=== PATIENT | female | born 2000 | race American Indian/Alaskan Native ===

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

== ENCOUNTER 2020-09-29 18:17 | Outpatient (CLI) | payer MEDICAID, SELFPAY ==
--- NOTE | 2020-09-29 16:00 | DI.RAD_ITS ---
EXAM: XR ANKLE RT COMPLETE CLINICAL HISTORY: right inversion ankle injury S99.919A. TECHNIQUE: 2D digital imaging was performed. COMPARISON: CR XR ANKLE RT COMPLETE from 07/16/2018 FINDINGS: BONES: No acute fracture is present. No bony destructive lesion is seen. JOINTS: The ankle mortise is normally aligned. SOFT TISSUE: Soft tissue swelling about the ankle particularly laterally. IMPRESSION: No acute fracture or dislocation. Soft tissue swelling about the ankle particularly laterally. DATA REPOSITORY: RADIATION DOSE DELIVERED:
--- NOTE | 2020-09-29 16:36 | DI.VRAD_ITS ---
PROCEDURE INFORMATION: Exam: XR Right Ankle Exam date and time: 09/29/2020 4:17 PM Age: 20 years old Clinical indication: Other: Right inversion ankle injury TECHNIQUE: Imaging protocol: XR Right ankle. Views: 3 or more views. COMPARISON: CR XR ANKLE RT COMPLETE 07/16/2018 4:08 PM FINDINGS: Bones/joints: No fracture of distal tibia. No fracture of the talus. Metatarsal bones are unremarkable. No evidence of fracture. No dislocation at the metatarsal/tarsal joints. No fracture or dislocation. Soft tissues: Soft tissue swelling seen adjacent to lateral malleolus. IMPRESSION: 1. Soft tissue swelling seen adjacent to lateral malleolus. 2. No fracture or dislocation. Dictated and Authenticated by: Eliza Adkins MD. Ordering:NICK Gibson MD
== END 2020-09-29 18:37 ==
PROVIDERS: PCP Pediatrics; Visit Provider Pediatrics
DX: S93.491A Sprain of other ligament of right ankle, initial encounter
CPT/HCPCS: 73610

== ENCOUNTER 2021-01-17 18:00 | Emergency (ER) | payer MEDICAID, SELFPAY ==
[2021-01-17 18:08] VITALS: BP 131/86; PULSE 96; RESP 16; TEMP 37.6
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
[2021-01-17] MEDS: Lactated Ringers 1,000 ML 1000 ML IV (19:08)
[2021-01-17] MEDS: Omnipaque 350 MG/ML 100 ML BTL IJ (19:28)
[2021-01-17] MEDS: Normal Saline - Diluent 50 ML VIAL IV (19:29)
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
[2021-01-17 20:59] VITALS: BP 131/86; PULSE 96; RESP 16; TEMP 37.6; O2SAT 96
== END 2021-01-17 21:03 | disposition home or self-care (01) ==
PROVIDERS: Emergency Provider Physician Assistant; PCP Pediatrics
DX: S00.81XA Abrasion of other part of head, initial encounter (principal); S00.83XA Contusion of other part of head, initial encounter; M54.2 Cervicalgia; Y04.8XXA Assault by other bodily force, initial encounter; Y07.59 Other non-family member, perpetrator of maltreatment and neglect
CPT/HCPCS: 70491; 81025; 96360; 99284; 70110; 70450; 70486; 99285; J3490

== ENCOUNTER 2022-01-27 14:16 | Outpatient (REF) | payer MEDICAID, SELFPAY ==
--- NOTE | 2022-01-27 14:15 | PAPFT_PTH ---
PATIENT: Lynsey Mcguire LOC: [facility] U#:[id number] AGE/SX: 21/F ROOM: RE01/27/[address]: Susan Mclain APRN : 2000 BED: DIS: 01/27/2022 SPEC #: [id number] RECD: 01/27/22 18:09 STATUS: BAKARI REQ #: [id number] DEACON: 01/27/22 14:[address]: Susan Mclain DEPT: [facility] Cytology RECD BY: Bridgette Marc Tissues: 1 - CX/ENDOCX FOR PAP SMEARS Procedures: PAP THIN PREP/[facility] Screening Comments: [id number]
[2022-01-30 15:32] LABS: Chlamydia Result Negative (Negative); GC Result Negative (Negative)
== END 2022-01-27 14:17 | disposition home or self-care (01) ==
LOC: LBN 14:16
PROVIDERS: PCP Nurse Practitioner Adult Health; Visit Provider Nurse Practitioner Adult Health
DX: Z12.4 Encounter for screening for malignant neoplasm of cervix (principal); Z11.51 Encounter for screening for human papillomavirus (HPV)
CPT/HCPCS: 87491; 87591; 88142; 87480; 87510; 87660

== ENCOUNTER 2022-04-17 04:27 | Outpatient (CLI) | payer MEDICAID, SELFPAY ==
[2022-04-17] MEDS: Inhaler, Assist Device 1 EACH MC (16:41)
[2022-04-17] MEDS: Albuterol HFA 18 GM 200 PUFF INH IH (16:41)
--- NOTE | 2022-04-19 09:12 | W.PFT ---
Date of service: 04/17/22 Time of Service: 15:39 Pulmonary Function Test Result Requesting Provider Susan Mclain Indications: Dyspnea Interpretation Spirometry: There is no airflow limitation. There is no significant bronchodilator response. There is blunting of the inspiratory loop. Impression No airflow obstruction with inspiratory loop blunting. This could represent vocal cord dysfunction in the correct clinical context. Clinical Correlation therefore is recommended.
== END 2022-04-17 04:28 | disposition home or self-care (01) ==
LOC: RT 04:27
PROVIDERS: PCP Nurse Practitioner Adult Health; Visit Provider Nurse Practitioner Adult Health
DX: R06.09 Other forms of dyspnea (principal); J30.2 Other seasonal allergic rhinitis
CPT/HCPCS: 94060

== ENCOUNTER → 2022-05-09 01:16 | Outpatient (CLI) | payer MEDICAID, SELFPAY ==
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
== END ==
PROVIDERS: PCP Nurse Practitioner Adult Health; Visit Provider Advanced Practice Midwife
DX: O20.9 Hemorrhage in early pregnancy, unspecified (principal)
CPT/HCPCS: 76817

== ENCOUNTER 2022-05-31 02:57 | Outpatient (CLI) | payer MEDICAID, SELFPAY ==
[2022-05-31 16:00] LABS: Kit/Specimen SENT
[2022-05-31 16:10] LABS: Abs Immature Grans 0.06 10^3/uL (0.0-0.06); Absolute Lymphocyte Count 2.29 10^3/uL (1.2-3.4); Absolute Monocyte Count 0.78 10^3/uL (0.1-0.8); Basophils % 0.2; Eosinophils % 0.4; HCT 38.3 % (36.0-46.0); Immature Grans % 0.4; Lymphocytes % 13.8; MCH 22.9 pg (27.0-33.0); MCHC 31.3 % (32.0-36.0); MCV 73 fL (80-95); MPV 10.3 fL (8.0-11.0); Monocytes % 4.7; Neutrophils % 80.5; Platelet Count 348 10^3/uL (130-400); RBC 5.24 10^6/uL (3.93-5.22); RDW 16.5 % (11.7-14.6); RDW-SD 43.1 fL; WBC 16.59 10^3/uL (4.4-10.8)
[2022-05-31 16:17] LABS: Absolute Basophil Count 0.03 10^3/uL (0.0-0.2); Absolute Eosinophil Count 0.07 10^3/uL (0.0-0.7); Absolute Neutrophil Count 13.35 10^3/uL (1.2-6.7)
[2022-06-02 08:58] LABS: Hepatitis B Surface Ag Negative (Negative)
[2022-06-02 09:49] LABS: HIV-1/2 Ag & Ab Screen Negative (Negative)
[2022-06-02 10:06] LABS: Hepatitis C Ab w Rflx HCV PCR Negative (Negative)
[2022-06-02 10:09] LABS: Varicella IgG Antibody Positive (See Note)
[2022-06-02 10:15] LABS: Rubella IgG Ab (UVM) Negative (See Note)
[2022-06-03 16:42] LABS: Syphilis IgG w/Reflex Nonreactive (Nonreactive)
[2022-06-20 13:18] LABS: Result Summary NEGATIVE; Specimen WB Whole Blood
== END 2022-05-31 02:58 | disposition home or self-care (01) ==
LOC: LBO 02:57
PROVIDERS: Advanced Practice Midwife; PCP Nurse Practitioner Adult Health; Visit Provider Advanced Practice Midwife
DX: Z34.82 Encounter for supervision of other normal pregnancy, second trimester (principal); Z3A.00 Weeks of gestation of pregnancy not specified
CPT/HCPCS: 36415; 81220; 81222; 86787; 86803; 86850; 86900; 86901; 87340; 87389; 84443; 85025; 86762; 86780

== ENCOUNTER 2022-05-31 18:18 | Outpatient (REF) | payer MEDICAID, SELFPAY ==
[2022-05-31 18:13] LABS: *AMPHETAMINES SCREEN URINE Negative (Negative); *BARBITURATES SCREEN URINE Negative (Negative); *BENZODIAZEPINES SCREEN URINE Negative (Negative); Cannabinoids THC Positive (Negative); Cocaine Screen,Urine Negative (Negative); METHADONE URINE SCREEN Negative (Negative); OPIATES URINE SCREEN Negative (Negative)
[2022-05-31 18:15] LABS: Tricyclic Antidepressants Negative (Negative)
[2022-06-09 16:09] LABS: Buprenorphine Negative ng/mL (Cutoff: 5.0); Norbuprenorphine Negative ng/mL (Cutoff: 2.5)
== END 2022-05-31 18:19 | disposition home or self-care (01) ==
LOC: LBN 18:18
PROVIDERS: PCP Nurse Practitioner Adult Health; Visit Provider Advanced Practice Midwife
DX: O26.891 Other specified pregnancy related conditions, first trimester (principal); N89.8 Other specified noninflammatory disorders of vagina; Z3A.12 12 weeks gestation of pregnancy
CPT/HCPCS: 80307; 87086; 87480; 87510; 87660

== ENCOUNTER 2022-06-07 03:23 | Outpatient (CLI) | payer MEDICAID, SELFPAY ==
[2022-06-07 14:03] LABS: Glucose,1 Hr (Glucola) 93 mg/dL (80-140)
== END 2022-06-07 03:24 | disposition home or self-care (01) ==
LOC: LBO 03:24
PROVIDERS: PCP Nurse Practitioner Adult Health; Visit Provider Advanced Practice Midwife
DX: Z34.91 Encounter for supervision of normal pregnancy, unspecified, first trimester (principal)
CPT/HCPCS: 36415; 82950

== ENCOUNTER 2022-07-13 15:22 | Outpatient (REF) | payer MEDICAID, SELFPAY | END 2022-07-13 15:23 | disposition home or self-care (01) | LOC: LBN 15:22 | PROVIDERS: PCP Nurse Practitioner Adult Health; Visit Provider Advanced Practice Midwife | DX: N89.8 Other specified noninflammatory disorders of vagina (principal) | CPT/HCPCS: 87480; 87510; 87660 ==

== ENCOUNTER 2022-07-19 03:41 | Outpatient (CLI) | payer MEDICAID, SELFPAY ==
[2022-07-21 09:54] LABS: Cigarette smoking status non-Smoker; GA used in risk estimate Scan estimate; IVF Pregnancy No; Initial or repeat testing Initial testing; Insulin dependent diabetes No; Maternal Weight 209 lbs; Number of Fetuses 1; Physician Phone Number 802-748-7300; Prev Pregnancy w/NTD No; RECOMMENDED FOLLOW UP None.; Results Summary Normal risk
== END 2022-07-19 03:42 | disposition home or self-care (01) ==
LOC: LBO 03:41
PROVIDERS: PCP Nurse Practitioner Adult Health; Visit Provider Advanced Practice Midwife
DX: Z34.92 Encounter for supervision of normal pregnancy, unspecified, second trimester (principal); Z36.89 Encounter for other specified antenatal screening; Z3A.19 19 weeks gestation of pregnancy
CPT/HCPCS: 36415; 82105

== ENCOUNTER → 2022-08-18 00:49 | Outpatient (CLI) | payer MEDICAID, SELFPAY ==
--- NOTE | 2022-08-18 07:57 | DI.US_ITS ---
Exam(s) US OB 2-3 TRIMESTER EXAM: US OB 2-3 TRIMESTER CLINICAL HISTORY: 18 wk anatomy,Z34.90. TECHNIQUE: Transabdominal obstetrical ultrasound was performed. COMPARISON: No exams were available for comparison FINDINGS: There is a single viable intrauterine gestation with cardiac activity identified-114 bpm. Amniotic fluid: There is a normal amount of amniotic fluid. Placental location: The placenta is posterior grade 1,with no evidence of placenta previa. ANATOMY: A 3 vessel umbilical cord is seen. A four-chamber cardiac view was obtained. Right and left ventricular outflow tracts were imaged. There are no obvious abnormalities of the spinal column evident. There is no obvious abnormal ity of the anterior abdominal wall. stomach and urinary bladder are identified and there is no evidence of hydronephrosis. No abnormalities of the upper lip region are identified. No evidence of choroid plexus cysts i n the brain. Dating parameters place this at approximately 24 weeks and 2 days gestational age. BPD measures 24 weeks and 3 days HC measures 24 weeks and 2 days AC measures 24 weeks and 2 days FL measures 24 weeks and 0 days Estimated weight is 672 gm-1 pound 8 ounces Fetus is at the 72nd percentile on the Hadlock scale. IMPRESSION:: Single viable intrauterine gestation which is approximately 24 weeks and 2 days gestati onal age, implying an ESTRELLITA of December 06, 2022. There are no obvious anomalies evident on today's study. The placenta is posterior with no evidence of placenta previa. There is a normal amount of amniotic fluid. DATA REPOSITORY:
== END ==
PROVIDERS: PCP Nurse Practitioner Adult Health; Visit Provider Advanced Practice Midwife
DX: Z34.92 Encounter for supervision of normal pregnancy, unspecified, second trimester (principal); Z3A.24 24 weeks gestation of pregnancy
CPT/HCPCS: 76805

== ENCOUNTER 2022-09-18 03:07 | Outpatient (CLI) | payer MEDICAID, SELFPAY ==
[2022-09-18 14:04] LABS: Glucose,1 Hr (Glucola) 61 mg/dL (80-140)
[2022-09-18 14:10] LABS: *AMPHETAMINES SCREEN URINE Negative (Negative); *BARBITURATES SCREEN URINE Negative (Negative); *BENZODIAZEPINES SCREEN URINE Negative (Negative); Cannabinoids THC Negative (Negative); Cocaine Screen,Urine Negative (Negative); METHADONE URINE SCREEN Negative (Negative); OPIATES URINE SCREEN Negative (Negative); Tricyclic Antidepressants Negative (Negative)
== END 2022-09-18 03:08 | disposition home or self-care (01) ==
LOC: LBO 03:07
PROVIDERS: PCP Nurse Practitioner Adult Health; Visit Provider Advanced Practice Midwife
DX: O99.323 Drug use complicating pregnancy, third trimester (principal); O26.893 Other specified pregnancy related conditions, third trimester; Z67.91 Unspecified blood type, Rh negative
CPT/HCPCS: 36415; 80307; 82950; 86850; 90384

== ENCOUNTER 2022-11-15 02:03 | Outpatient (CLI) | payer MEDICAID, SELFPAY ==
--- NOTE | 2022-11-15 15:25 | DI.US_ITS ---
Exam(s) US OB ANN-MARIE WEIGHT EXAM: US OB ANN-MARIE WEIGHT CLINICAL HISTORY: , size greater than dates,z34.90. TECHNIQUE: Transabdominal obstetrical ultrasound performed. COMPARISON: US US OB 2-3 TRIMESTER from 08/18/2022 FINDINGS:: Number of fetuses: One. position: Vertex. Placental location: Fundal no evidence of previa. BIOMETRIC DATA: BPD: 89mm = 36+ 0 weeks HC: 327mm = 37+ 1 weeks AC: 326mm = 36+ 4 weeks FL: 71 mm = 36+ 2 weeks EFW: 2952 Gms = 39% Composite Age: 36+ 4 weeks EDC: 09 December 2022 Heart Rate: 136BPM Amniotic fluid index: 16.8 cm. Amount of fluid is visually within normal limits. IMPRESSION: size and weight are within the expected range. DATA REPOSITORY:
== END 2022-11-15 02:23 ==
LOC: DI 02:03
PROVIDERS: PCP Nurse Practitioner Adult Health; Visit Provider Advanced Practice Midwife
DX: O36.63X0 Maternal care for excessive fetal growth, third trimester, not applicable or unspecified (principal); Z3A.36 36 weeks gestation of pregnancy
CPT/HCPCS: 76816

== ENCOUNTER 2022-11-15 18:21 | Outpatient (REF) | payer MEDICAID, SELFPAY | END 2022-11-15 18:22 | disposition home or self-care (01) | LOC: LBN 18:21 | PROVIDERS: PCP Nurse Practitioner Adult Health; Visit Provider Advanced Practice Midwife | DX: Z34.93 Encounter for supervision of normal pregnancy, unspecified, third trimester (principal); Z36.85 Encounter for antenatal screening for Streptococcus B; Z3A.36 36 weeks gestation of pregnancy | CPT/HCPCS: 87081 ==

== ENCOUNTER 2022-12-08 14:37 | Outpatient (CLI) | payer MEDICAID, SELFPAY ==
[2022-12-08 15:21] VITALS: BP 125/77; PULSE 81; TEMP 36.8
[2022-12-08 16:18] LABS: ROM Plus Negative
--- NOTE | 2022-12-08 16:23 | PDOC.NST_ITS ---
Date of service: 12/08/22 Time of Service: 16:15 NST Evaluation Reason for NST Reasons for Nonstress Test: OTHER, SEE COMMENT Reason for NST Other: Rule out labor Gestational Age Gestational Age in Weeks and Days: 39 Weeks and 6Days Test and Monitor Explained Test/Monitor Explained: Test Explained, Monitor Explained and Patient Verbalized Understanding Vital Signs Blood Pressure: 125/77 Pulse: 81 Temperature: 98.2 F Urine Results Urine Protein: Negative Urine Ketones: Negative Urine Glucose: Negative Urine Blood: Positive NST Information Date on Monitor: 12/08/22 Time on Monitor: 15:06 Date off Monitor: 12/08/22 Time off Monitor: 15:40 Total Time on Monitor: 34 NST Interventions: PO Hydration Contraction Frequency: Irregular NST Evaluation Patient States Movement: Present FHR Baseline: 135 Variability: Moderate 6-25 bpm Accelerations: 15x15 Decelerations: None NST Results: Reactive Note N/A NST Note Note: NST is reactive and reassuring. Baby is active. Jameson shows some contractions but patient is very comfortable and reports mild back pain and tightening only. ROM plus negative. VE 1/50/-2 posterior and softening. Reviewed signs of labor and when to call. Has appointment in office next week if she has not delivered. JUSTINA NST Reviewed and Verified by: Nydia Dacosta
[2022-12-08 16:25] VITALS: BP 125/77; PULSE 81; TEMP 36.8
== END 2022-12-08 17:30 | disposition home or self-care (01) ==
LOC: BCD 14:37 → OBS 15:20
PROVIDERS: PCP Nurse Practitioner Adult Health; Visit Provider Advanced Practice Midwife
DX: O47.1 False labor at or after 37 completed weeks of gestation (principal); Z3A.37 37 weeks gestation of pregnancy
CPT/HCPCS: 59025; 84112

== ENCOUNTER 2022-12-09 17:23 | Inpatient (IN) | payer MEDICAID, SELFPAY ==
[2022-12-09] VITALS (89 sets, daily range): BP systolic 80–135; BP diastolic 37–81; PULSE 81–128; RESP 20; TEMP 36.6–37.1; O2SAT 94–100; BMI 39.9
[2022-12-09 18:09] LABS: Source Nasal/Nares
[2022-12-09 18:21] LABS: HCT 31.2 % (36.0-46.0); MCH 23.4 pg (27.0-33.0); MCHC 32.1 % (32.0-36.0); MCV 73 fL (80-95); MPV 10.6 fL (8.0-11.0); Platelet Count 316 10^3/uL (130-400); RBC 4.27 10^6/uL (3.93-5.22); RDW 17.2 % (11.7-14.6); RDW-SD 44.7 fL; WBC 21.15 10^3/uL (4.4-10.8)
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
[2022-12-09 18:57] LABS: COVID-19 PCR Negative (Negative)
--- NOTE | 2022-12-09 19:42 | W.PM.OBNL1 ---
Date of service: 12/09/22 Time of Service: 19:42 Informed Consent Informed Consent: Risk,Benefits,Alternatives Discussed and Other (nitrous use) Contractions Monitor Mode: External Contraction Frequency(min): 4-7 Contraction Duration(sec): 60 Intensity: Moderate Fetus A Monitor: External (US) Heart Rate Baseline: 130 Variability: Moderate (6-25 BPM) Categories: Category I Amniotic Membrane Status: Intact Assessment and Plan Assessment and plan (1) Uterine contractions: Status: Acute Assessment and plan: 1. Awaiting epidural placement, trying nitrous for pain relief. emesis times 1. 2. Labor support offered 3. Will reassess VE after epidural unless otherwise indicated by maternal / status. 4. No prolonged deceleration in over 1 hour at this time. KH Objective Abnormal lab results 12/09/22 Range/Units 18:00 WBC 21.15 H (4.4-10.8) 10^3/uL Hgb 10.0 L (11.2-15.7) g/dL Hct 31.2 L (36.0-46.0) % MCV 73 L (80-95) fL MCH 23.4 L (27.0-33.0) pg RDW 17.2 H (11.7-14.6) % Temp Pulse Resp BP Pulse Ox 98.5 F 100 H 20 108/56 L 96 12/09/22 19:05 12/09/22 19:05 12/09/22 15:55 12/09/22 19:05 12/09/22 15:55 Laboratory Results WBC 21.15 10^3/uL (4.4-10.8) H 12/09/22 18:00 RBC 4.27 10^6/uL (3.93-5.22) 12/09/22 18:00 Hgb 10.0 g/dL (11.2-15.7) L 12/09/22 18:00 Hct 31.2 % (36.0-46.0) L 12/09/22 18:00 MCV 73 fL (80-95) L 12/09/22 18:00 MCH 23.4 pg (27.0-33.0) L 12/09/22 18:00 MCHC 32.1 % (32.0-36.0) 12/09/22 18:00 RDW 17.2 % (11.7-14.6) H 12/09/22 18:00 Plt Count 316 10^3/uL (130-400) 12/09/22 18:00 MPV 10.6 fL (8.0-11.0) 12/09/22 18:00 COVID-19 Source Nasal/Nares 12/09/22 17:04 SARS-CoV-2 (PCR) Negative (Negative) 12/09/22 17:04 Patient ABO/Rh O Negative 12/09/22 18:00 Antibody Screen NEGATIVE 12/09/22 18:00 Subjective Interval history since last seen: Much more uncomfortable with contractions. Awaiting CORDWOOD CUTTER who is in OR at this time. Will try Nitrous. Results Hemoglobin/Hematocrit: Hgb 10.0 g/dL (11.2-15.7) L 12/09/22 18:00 Hct 31.2 % (36.0-46.0) L 12/09/22 18:00 Abnormal Lab Findings: Abnormal Labs 12/09/22 18:00 WBC 21.15 H Hgb 10.0 L Hct 31.2 L MCV 73 L MCH 23.4 L RDW 17.2 H
[2022-12-09] MEDS: Lactated Ringers 500 ML IV (19:58)
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
--- NOTE | 2022-12-09 20:53 | ANES.NEUR_ITS ---
Epidural/Spinal Catheter Date Performed: 12/09/22 Procedure Start: 20:30 Procedure Stop: 20:56 Requesting Provider: Nydia Dacosta Procedure Location: Obstetrics Reason Performed: Labor Epidural Standard Monitors Applied: Blood Pressure, SpO2 and See EMR for corresponding vital signs Patient Position: Sitting Sedation Given (Indicate Dose Given): No Sedation given Patient Mental Status: Awake Sterility: Hand Hygiene, Surgical Cap, Surgical Mask, Sterile Gloves, Sterile Drape/Sheet and Chlorhexidine Procedure Location: L3-L4 Interspace Epidural Needle: Tuohy 18 Gauge Needle Length: 3.5 Inch Needle Approach: Midline Epidural Procedure: Skin Prepped, 1% Lidocaine to skin and subcutaneous tissue with 25G needle, Tuohy Needle placed, ELGIN to Saline Used, Epidural Catheter Placed, Negative Heme, Negative CSF Flow and Tuohy Needle Removed Catheter Placed?: Catheter Placed Test Dose (Indicate Dose Given): 3ml 1.5% Lidocaine with 1:200K Epinephrine Given and Negative Test Dose Loss of Resistance Depth (cm): 7 Catheter depth at skin (cm): 13 Dressing: Sorbaview Dressing Placed, Steristrips Used, Mastisol Used and Dressing reinforced with Tape Epidural Provider Bolus (Indicate Dose Given): Total bolus dose given in 3- 5 ml divided doses and Total Ropivacaine 0.1% with Fentanyl 2mcg/ml Given from pump. (ml) Dose:: 10ml Additives (Indicate Dose Given ): None Infusion Medication: Medication Infusion Began Medication Infusion: Ropivacaine 0.1% with Fentanyl 2mcg/ml Maintenance Infusion Rate (ml/hour): 10 PCEA Bolus Dose (ml): 5 Block Level: N/A Paresthesia: None Ultrasound: Used to sebastián site Number of Attempts (See previous attempts in note section): 1 Procedure Tolerated: No Complications and Patient tolerated well Procedure Outcome: Successful Procedure Comment:: test dose at 2042. pt educated on PCEA use. answered questions. she states she is comfortable after pump bolus. Performed By: Jack Mora
--- NOTE | 2022-12-09 23:11 | PGE_ITS ---
Date of service: 12/09/22 Time of Service: 23:11 Informed Consent Informed Consent: Augmentation of Labor, Risk,Benefits,Alternatives Discussed and Other (nitrous use) Pelvic Exam Dilation: 7 Effacement (%): 100 station: -1 Cervix Position: mid Contractions Monitor Mode: External Contraction Frequency(min): 4-6 Contraction Duration(sec): 40-60 Intensity: Moderate Fetus A Monitor: External (US) Heart Rate Baseline: 125 Variability: Moderate (6-25 BPM) Categories: Category II Accelerations: 15 X 15 Decelerations: Variable (irregular variable decelerations to 100 for 15 seconds) Recurrence: Intermittent Assessment and Plan Assessment and plan (1) Slow slope active phase of labor: Status: Acute Assessment and plan: 1. Supervisor Billposting reviewed plan with Dr. Flores that pitocin augmentation would be started 2 hours after epidural if no cervical changes were noted. MD agreed to plan. 2. FHR tracing CAT II due to occasional 15 second variable decel to 100, overall reassuring tracing. 3. Reviewed plan with patient, agrees to pitocin augmentation. Will start at 2 mu and increase by 2 mu every 30 minutes until regular strong contractions are noted. 4. Will reassess in 2 hours or prn. KH Objective Abnormal lab results 12/09/22 Range/Units 18:00 WBC 21.15 H (4.4-10.8) 10^3/uL Hgb 10.0 L (11.2-15.7) g/dL Hct 31.2 L (36.0-46.0) % MCV 73 L (80-95) fL MCH 23.4 L (27.0-33.0) pg RDW 17.2 H (11.7-14.6) % Temp Pulse Resp BP Pulse Ox 98.3 F 112 H 20 93/54 L 99 12/09/22 20:51 12/09/22 23:10 12/09/22 15:55 12/09/22 23:10 12/09/22 22:53 Laboratory Results WBC 21.15 10^3/uL (4.4-10.8) H 12/09/22 18:00 RBC 4.27 10^6/uL (3.93-5.22) 12/09/22 18:00 Hgb 10.0 g/dL (11.2-15.7) L 12/09/22 18:00 Hct 31.2 % (36.0-46.0) L 12/09/22 18:00 MCV 73 fL (80-95) L 12/09/22 18:00 MCH 23.4 pg (27.0-33.0) L 12/09/22 18:00 MCHC 32.1 % (32.0-36.0) 12/09/22 18:00 RDW 17.2 % (11.7-14.6) H 12/09/22 18:00 Plt Count 316 10^3/uL (130-400) 12/09/22 18:00 MPV 10.6 fL (8.0-11.0) 12/09/22 18:00 COVID-19 Source Nasal/Nares 12/09/22 17:04 SARS-CoV-2 (PCR) Negative (Negative) 12/09/22 17:04 Patient ABO/Rh O Negative 12/09/22 18:00 Antibody Screen NEGATIVE 12/09/22 18:00 Vital Signs Reviewed: Yes Subjective Interval history since last seen: Lynsey remains very comfortable. Agrees to pitocin augmentation of labor as this VE shows no change from just after epidural Interventions Augmentation , Pitocin rate (mU/min): 2 Results Hemoglobin/Hematocrit: Hgb 10.0 g/dL (11.2-15.7) L 12/09/22 18:00 Hct 31.2 % (36.0-46.0) L 12/09/22 18:00 Abnormal Lab Findings: Abnormal Labs 12/09/22 18:00 WBC 21.15 H Hgb 10.0 L Hct 31.2 L MCV 73 L MCH 23.4 L RDW 17.2 H
[2022-12-09] MEDS: Oxytocin/Normal Saline 30 UNIT/500 ML BAG 2 UNITS IV (23:28)
[2022-12-10] VITALS (14 sets, daily range): BP systolic 98–122; BP diastolic 56–75; PULSE 98–121; RESP 18; TEMP 36.5–37.5; O2SAT 95–97
--- NOTE | 2022-12-10 01:00 | W.PM.OBNL1 ---
Date of service: 12/10/22 Time of Service: 01:00 Informed Consent Informed Consent: Augmentation of Labor, Risk,Benefits,Alternatives Discussed and Other (nitrous use) Pelvic Exam Dilation: 9 Effacement (%): 100 station: -1 Comments: AROM at 0047 small amount of clear fluid Contractions Monitor Mode: Internal Contraction Frequency(min): 4-5 Contraction Duration(sec): 60 IUPC resting tone (mmHg): 20 IUPC peak pressure (mmHg): 75 IUPC [place] units: 160 Fetus A Monitor: Internal (FSE) Heart Rate Baseline: 135 Variability: Moderate (6-25 BPM) Categories: Category I Accelerations: 10 X 10 Decelerations: None Amniotic Membrane Status: Ruptured Rupture Method: Artifical Amniotic Fluid: Clear Amount: small Date of Membrane Rupture: 12/10/22 Time of Membrane Rupture: 00:47 Assessment Note: currently no decelerations since 55, when FSE was first applied FHR was 110 for 4 minutes Assessment and Plan Assessment and plan (1) Slow slope active phase of labor: Status: Acute Assessment and plan: 1. due to repeat prolonged variable deceleration pitocin was discontinued 2. Telephone consult with Dr. Flores to inform her of maternal / status and decelerations 3. AROM for small amount of clear fluid and IUPC and FSE is applied. 4. MD would like to allow for continued progress if there are not severe or repetitive decelerations of FHR. 5. Will observe for change in 2 hours unless otherwise indicated by maternal / status. KH Objective Abnormal lab results 12/09/22 Range/Units 18:00 WBC 21.15 H (4.4-10.8) 10^3/uL Hgb 10.0 L (11.2-15.7) g/dL Hct 31.2 L (36.0-46.0) % MCV 73 L (80-95) fL MCH 23.4 L (27.0-33.0) pg RDW 17.2 H (11.7-14.6) % Temp Pulse Resp BP Pulse Ox 98.8 F 111 H 20 100/57 L 99 12/09/22 23:40 12/09/22 23:40 12/09/22 15:55 12/09/22 23:40 12/09/22 22:53 Laboratory Results WBC 21.15 10^3/uL (4.4-10.8) H 12/09/22 18:00 RBC 4.27 10^6/uL (3.93-5.22) 12/09/22 18:00 Hgb 10.0 g/dL (11.2-15.7) L 12/09/22 18:00 Hct 31.2 % (36.0-46.0) L 12/09/22 18:00 MCV 73 fL (80-95) L 12/09/22 18:00 MCH 23.4 pg (27.0-33.0) L 12/09/22 18:00 MCHC 32.1 % (32.0-36.0) 12/09/22 18:00 RDW 17.2 % (11.7-14.6) H 12/09/22 18:00 Plt Count 316 10^3/uL (130-400) 12/09/22 18:00 MPV 10.6 fL (8.0-11.0) 12/09/22 18:00 COVID-19 Source Nasal/Nares 12/09/22 17:04 SARS-CoV-2 (PCR) Negative (Negative) 12/09/22 17:04 Patient ABO/Rh O Negative 12/09/22 18:00 Antibody Screen NEGATIVE 12/09/22 18:00 Subjective Interval history since last seen: CNM called to view tracing at 0020 due to prolonged decel to 90 over 4 minutes. While viewing tracing, there was another 40 second variable deceleration. Registry Rn called Dr. Flores to inform her of FHR decelerations and that pitocin was discontinued. VE 9cm 100/-1. requests CNM to perform AROM and continue to observe for changes as long as FHR is back to normal baseline with good variability which it was at that time. KH Results Hemoglobin/Hematocrit: Hgb 10.0 g/dL (11.2-15.7) L 12/09/22 18:00 Hct 31.2 % (36.0-46.0) L 12/09/22 18:00 Abnormal Lab Findings: Abnormal Labs 12/09/22 18:00 WBC 21.15 H Hgb 10.0 L Hct 31.2 L MCV 73 L MCH 23.4 L RDW 17.2 H Procedure Procedures: Scalp Electrode Placement , indication for electrode: occasional prolonged deceleration of FHR noted / IUPC Insertion , indication for IUPC: unable to assess contractions with external toco and patient does not feel them due to epidural, occasional prolonged or variable deceleration noted.
--- NOTE | 2022-12-10 02:24 | W.PM.OBNL1 ---
Date of service: 12/10/22 Time of Service: 02:24 Informed Consent Informed Consent: Augmentation of Labor, Risk,Benefits,Alternatives Discussed and Other (nitrous use) Pelvic Exam Dilation: 9.5 Effacement (%): 100 station: -1 Contractions Monitor Mode: Internal Contraction Frequency(min): 4-5 Contraction Duration(sec): 60 IUPC [place] units: 95 Fetus A Monitor: Internal (FSE) Heart Rate Baseline: 125 Variability: Moderate (6-25 BPM) Categories: Category II Decelerations: Variable Recurrence: Recurrent Assessment and Plan Assessment and plan (1) Slow slope active phase of labor: Status: Acute Assessment and plan: 1. MD called to attend patient due to repetitive variable decelerations with 3 contractions in a row. 2. Patient repositioned. has had sever IV boluses to date, will defer bolus 3. Patient aware that due to baby having some difficulty with tolerating contractions that Dr. Flores will attend to determine plan of care to continue with MD collaboration and presence in hospital or if may be recommended. KH Objective Abnormal lab results 12/09/22 Range/Units 18:00 WBC 21.15 H (4.4-10.8) 10^3/uL Hgb 10.0 L (11.2-15.7) g/dL Hct 31.2 L (36.0-46.0) % MCV 73 L (80-95) fL MCH 23.4 L (27.0-33.0) pg RDW 17.2 H (11.7-14.6) % Temp Pulse Resp BP Pulse Ox 98.5 F 98 H 20 120/75 99 12/10/22 01:59 12/10/22 01:59 12/09/22 15:55 12/10/22 01:59 12/09/22 22:53 Laboratory Results WBC 21.15 10^3/uL (4.4-10.8) H 12/09/22 18:00 RBC 4.27 10^6/uL (3.93-5.22) 12/09/22 18:00 Hgb 10.0 g/dL (11.2-15.7) L 12/09/22 18:00 Hct 31.2 % (36.0-46.0) L 12/09/22 18:00 MCV 73 fL (80-95) L 12/09/22 18:00 MCH 23.4 pg (27.0-33.0) L 12/09/22 18:00 MCHC 32.1 % (32.0-36.0) 12/09/22 18:00 RDW 17.2 % (11.7-14.6) H 12/09/22 18:00 Plt Count 316 10^3/uL (130-400) 12/09/22 18:00 MPV 10.6 fL (8.0-11.0) 12/09/22 18:00 COVID-19 Source Nasal/Nares 12/09/22 17:04 SARS-CoV-2 (PCR) Negative (Negative) 12/09/22 17:04 Patient ABO/Rh O Negative 12/09/22 18:00 Antibody Screen NEGATIVE 12/09/22 18:00 Subjective Interval history since last seen: Lynsey is doing well. Has some rectal pressure but no involuntary urge to push. VE due to variable decelerations to 80's done, no change 9.5/100/-1. Dr. Flores called and check writer salesperson asked MD to attend. KH Results Hemoglobin/Hematocrit: Hgb 10.0 g/dL (11.2-15.7) L 12/09/22 18:00 Hct 31.2 % (36.0-46.0) L 12/09/22 18:00 Abnormal Lab Findings: Abnormal Labs 12/09/22 18:00 WBC 21.15 H Hgb 10.0 L Hct 31.2 L MCV 73 L MCH 23.4 L RDW 17.2 H
--- NOTE | 2022-12-10 03:40 | W.PM.OBNL1 ---
Date of service: 12/10/22 Time of Service: 03:40 Informed Consent Informed Consent: Augmentation of Labor, Risk,Benefits,Alternatives Discussed and Other (nitrous use) Pelvic Exam Dilation: 10 Effacement (%): 100 station: -1 Contractions Monitor Mode: Internal Contraction Frequency(min): 2-4 IUPC resting tone (mmHg): 20 IUPC peak pressure (mmHg): 75 Fetus A Monitor: Internal (FSE) Heart Rate Baseline: 130 Variability: Moderate (6-25 BPM) Categories: Category II CategoryII Plan of Care: Team Huddle, Medical Consult (will allow period of time without pushing) and Continuous Monitoring/Observation Decelerations: Variable and Prolonged Assessment and Plan Assessment and plan (1) Slow slope active phase of labor: Status: Acute Assessment and plan: 1. Will rest from pushing for a period of time and allow for passive descent if FHR tolerates 2. IV Zofran and Protonix for nausea and vomiting 3. Dr. Flores is present and aware of CAT II tracing 4. Reassess in 1 hour or as indicated Objective Abnormal lab results 12/09/22 Range/Units 18:00 WBC 21.15 H (4.4-10.8) 10^3/uL Hgb 10.0 L (11.2-15.7) g/dL Hct 31.2 L (36.0-46.0) % MCV 73 L (80-95) fL MCH 23.4 L (27.0-33.0) pg RDW 17.2 H (11.7-14.6) % Temp Pulse Resp BP Pulse Ox 98.7 F 107 H 20 119/62 99 12/10/22 02:37 12/10/22 02:37 12/09/22 15:55 12/10/22 02:37 12/09/22 22:53 Laboratory Results WBC 21.15 10^3/uL (4.4-10.8) H 12/09/22 18:00 RBC 4.27 10^6/uL (3.93-5.22) 12/09/22 18:00 Hgb 10.0 g/dL (11.2-15.7) L 12/09/22 18:00 Hct 31.2 % (36.0-46.0) L 12/09/22 18:00 MCV 73 fL (80-95) L 12/09/22 18:00 MCH 23.4 pg (27.0-33.0) L 12/09/22 18:00 MCHC 32.1 % (32.0-36.0) 12/09/22 18:00 RDW 17.2 % (11.7-14.6) H 12/09/22 18:00 Plt Count 316 10^3/uL (130-400) 12/09/22 18:00 MPV 10.6 fL (8.0-11.0) 12/09/22 18:00 COVID-19 Source Nasal/Nares 12/09/22 17:04 SARS-CoV-2 (PCR) Negative (Negative) 12/09/22 17:04 Patient ABO/Rh O Negative 12/09/22 18:00 Antibody Screen NEGATIVE 12/09/22 18:00 Subjective Interval history since last seen: Lynsey had felt pressure and urge to push, trial of pushing done but patient has poor effort and no progress after 20 minutes of pushing. She is having nausea and dry heaves and requests period of rest. Dr. Flores is present and is aware of patient's condition and FHR tracing. Results Hemoglobin/Hematocrit: Hgb 10.0 g/dL (11.2-15.7) L 12/09/22 18:00 Hct 31.2 % (36.0-46.0) L 12/09/22 18:00 Abnormal Lab Findings: Abnormal Labs 12/09/22 18:00 WBC 21.15 H Hgb 10.0 L Hct 31.2 L MCV 73 L MCH 23.4 L RDW 17.2 H
[2022-12-10] MEDS: Ondansetron 4 MG/2 ML VIAL IVP (03:43)
[2022-12-10] MEDS: Pantoprazole 40 MG VIAL IVP (03:52)
[2022-12-10] MEDS: Lactated Ringers 1,000 ML 125 ML IV (04:52)
--- NOTE | 2022-12-10 05:53 | W.PM.OBNL1 ---
Date of service: 12/10/22 Time of Service: 05:15 Informed Consent Informed Consent: Augmentation of Labor, Risk,Benefits,Alternatives Discussed and Other (nitrous use) Fetus A Assessment Note: FHR deceleration to 70's with contractions, taking longer to return to baseline. aware and will attend. Video Production Intern verbalized that she will defer decision related to possible vacuum to her. KH Objective Abnormal lab results 12/09/22 Range/Units 18:00 WBC 21.15 H (4.4-10.8) 10^3/uL Hgb 10.0 L (11.2-15.7) g/dL Hct 31.2 L (36.0-46.0) % MCV 73 L (80-95) fL MCH 23.4 L (27.0-33.0) pg RDW 17.2 H (11.7-14.6) % Temp Pulse Resp BP Pulse Ox 99.5 F 112 H 20 115/58 L 99 12/10/22 05:08 12/10/22 05:08 12/09/22 15:55 12/10/22 05:08 12/09/22 22:53 Laboratory Results WBC 21.15 10^3/uL (4.4-10.8) H 12/09/22 18:00 RBC 4.27 10^6/uL (3.93-5.22) 12/09/22 18:00 Hgb 10.0 g/dL (11.2-15.7) L 12/09/22 18:00 Hct 31.2 % (36.0-46.0) L 12/09/22 18:00 MCV 73 fL (80-95) L 12/09/22 18:00 MCH 23.4 pg (27.0-33.0) L 12/09/22 18:00 MCHC 32.1 % (32.0-36.0) 12/09/22 18:00 RDW 17.2 % (11.7-14.6) H 12/09/22 18:00 Plt Count 316 10^3/uL (130-400) 12/09/22 18:00 MPV 10.6 fL (8.0-11.0) 12/09/22 18:00 COVID-19 Source Nasal/Nares 12/09/22 17:04 SARS-CoV-2 (PCR) Negative (Negative) 12/09/22 17:04 Patient ABO/Rh O Negative 12/09/22 18:00 Antibody Screen NEGATIVE 12/09/22 18:00 Results Hemoglobin/Hematocrit: Hgb 10.0 g/dL (11.2-15.7) L 12/09/22 18:00 Hct 31.2 % (36.0-46.0) L 12/09/22 18:00 Abnormal Lab Findings: Abnormal Labs 12/09/22 18:00 WBC 21.15 H Hgb 10.0 L Hct 31.2 L MCV 73 L MCH 23.4 L RDW 17.2 H
--- NOTE | 2022-12-10 05:55 | W.PM.OBNL1 ---
Date of service: 12/10/22 Time of Service: 05:40 Informed Consent Informed Consent: Augmentation of Labor, Risk,Benefits,Alternatives Discussed and Other (nitrous use) Objective Abnormal lab results 12/09/22 Range/Units 18:00 WBC 21.15 H (4.4-10.8) 10^3/uL Hgb 10.0 L (11.2-15.7) g/dL Hct 31.2 L (36.0-46.0) % MCV 73 L (80-95) fL MCH 23.4 L (27.0-33.0) pg RDW 17.2 H (11.7-14.6) % Temp Pulse Resp BP Pulse Ox 99.5 F 112 H 20 115/58 L 99 12/10/22 05:08 12/10/22 05:08 12/09/22 15:55 12/10/22 05:08 12/09/22 22:53 Laboratory Results WBC 21.15 10^3/uL (4.4-10.8) H 12/09/22 18:00 RBC 4.27 10^6/uL (3.93-5.22) 12/09/22 18:00 Hgb 10.0 g/dL (11.2-15.7) L 12/09/22 18:00 Hct 31.2 % (36.0-46.0) L 12/09/22 18:00 MCV 73 fL (80-95) L 12/09/22 18:00 MCH 23.4 pg (27.0-33.0) L 12/09/22 18:00 MCHC 32.1 % (32.0-36.0) 12/09/22 18:00 RDW 17.2 % (11.7-14.6) H 12/09/22 18:00 Plt Count 316 10^3/uL (130-400) 12/09/22 18:00 MPV 10.6 fL (8.0-11.0) 12/09/22 18:00 COVID-19 Source Nasal/Nares 12/09/22 17:04 SARS-CoV-2 (PCR) Negative (Negative) 12/09/22 17:04 Patient ABO/Rh O Negative 12/09/22 18:00 Antibody Screen NEGATIVE 12/09/22 18:00 Subjective Interval history since last seen: Dr. Flores assessing patient. despite multiple position changes FHR continues to be slow to recover. MD considering C/S. See MD notes. Will plan to call team and pediatrics once decision is made to move forward.KH Results Hemoglobin/Hematocrit: Hgb 10.0 g/dL (11.2-15.7) L 12/09/22 18:00 Hct 31.2 % (36.0-46.0) L 12/09/22 18:00 Abnormal Lab Findings: Abnormal Labs 12/09/22 18:00 WBC 21.15 H Hgb 10.0 L Hct 31.2 L MCV 73 L MCH 23.4 L RDW 17.2 H
[2022-12-10] MEDS: Terbutaline 1 MG/ML VIAL 0.25 MG SC (05:59)
[2022-12-10] MEDS: Azithromycin 500 MG VIAL (06:06)
--- NOTE | 2022-12-10 06:29 | W.PM.OBNL1 ---
Date of service: 12/10/22 Time of Service: 06:29 Informed Consent Informed Consent: Augmentation of Labor, Risk,Benefits,Alternatives Discussed and Other (nitrous use) Pelvic Exam Dilation: 10 Effacement (%): 100 station: +1 Position: OP Fetus A Heart Rate Baseline: 155 Presentation: Vertex Variability: Moderate (6-25 BPM) Categories: Category II Accelerations: 15 X 15 Decelerations: Variable Recurrence: Recurrent Assessment and Plan Assessment and plan (1) Uterine contractions: Status: Acute Assessment and plan: Due to the minimal descent of the head and the concerning Cat 2 tracing which worsened with contractions and pushing, a delivery was recommended. The procedure was discussed and explained to the patient. Risks were reviewed and consent signed. All questions answered. Objective Abnormal lab results 12/09/22 Range/Units 18:00 WBC 21.15 H (4.4-10.8) 10^3/uL Hgb 10.0 L (11.2-15.7) g/dL Hct 31.2 L (36.0-46.0) % MCV 73 L (80-95) fL MCH 23.4 L (27.0-33.0) pg RDW 17.2 H (11.7-14.6) % Temp Pulse Resp BP Pulse Ox 99.2 F 121 H 20 122/66 99 12/10/22 06:19 12/10/22 06:19 12/09/22 15:55 12/10/22 06:19 12/09/22 22:53 Laboratory Results WBC 21.15 10^3/uL (4.4-10.8) H 12/09/22 18:00 RBC 4.27 10^6/uL (3.93-5.22) 12/09/22 18:00 Hgb 10.0 g/dL (11.2-15.7) L 12/09/22 18:00 Hct 31.2 % (36.0-46.0) L 12/09/22 18:00 MCV 73 fL (80-95) L 12/09/22 18:00 MCH 23.4 pg (27.0-33.0) L 12/09/22 18:00 MCHC 32.1 % (32.0-36.0) 12/09/22 18:00 RDW 17.2 % (11.7-14.6) H 12/09/22 18:00 Plt Count 316 10^3/uL (130-400) 12/09/22 18:00 MPV 10.6 fL (8.0-11.0) 12/09/22 18:00 COVID-19 Source Nasal/Nares 12/09/22 17:04 SARS-CoV-2 (PCR) Negative (Negative) 12/09/22 17:04 Patient ABO/Rh O Negative 12/09/22 18:00 Antibody Screen NEGATIVE 12/09/22 18:00 Objective Narrative Objective Narrative: Pt pushed for just over 2hrs with minimal descent of the head to +1 station. The head was direct OP with increasing caput developing. Category 2 FHT with recurrent variable decels with most contractions, some becoming prolonged and slow to recover. Subjective Interval history since last seen: Pt getting tired and discouraged. Results Hemoglobin/Hematocrit: Hgb 10.0 g/dL (11.2-15.7) L 12/09/22 18:00 Hct 31.2 % (36.0-46.0) L 12/09/22 18:00 Abnormal Lab Findings: Abnormal Labs 12/09/22 18:00 WBC 21.15 H Hgb 10.0 L Hct 31.2 L MCV 73 L MCH 23.4 L RDW 17.2 H
[2022-12-10] MEDS: ceFAZolin 2 GM/50 ML BAG IVPB (07:06)
--- NOTE | 2022-12-10 07:30 | PERITONEUM_PTH ---
PATIENT: Lynsey Mcguire LOC: OBS U#:[id number] AGE/SX: 22/F ROOM: OBS.301 RE12/09/[address]: Coleen Flores MD : 2000 BED: A DIS: 12/13/2022 SPEC #: [id number] RECD: 12/11/22 12:39 STATUS: BAKARI REQ #: [id number] DEACON: 12/10/22 07:[address]: Coleen Flores DEPT: Surgical Specimen RECD BY: Bridgette Marc ENTERED: 12/11/22 12:40 SP TYPE: PERITONEUM OTHR DR: Susan Mclain APRN Tissues: 1 - PERITONEUM/ELLA BIOPSY Procedures: GROSS AND MICRO LEVEL 4 Comments: [id number]
[2022-12-10] MEDS: Bupivacaine 0.25% Pres-Free 30 ML VIAL (07:51)
--- NOTE | 2022-12-10 08:07 | W.PM.OP ---
Date of service: 12/10/22 Time of Service: 08:08 Operative Note Operative Note DATE OF PROCEDURE: 12/10/22 PRE-OP DIAGNOSIS: Cat 2 FHT, Arrest of descent PROCEDURE: PLTCS SURGEON: Coleen Flores ASSISTING SURGEON: Nydia Dacosta Refer to Anesthesia Record ESTIMATED BLOOD LOSS: 500 COMPLICATIONS: None Patient was transported to: floor Patient's condition: stable Indications: Cat 2FHT with minimal descent of the head, direct OP presentation Findings: Direct OP presentation, thick meconium. Male , apgars 7/9. Normal appearing uterus, ovaries, tubes and placenta. Multiple simple cystic structures attached to the pt's right abdominal side wall above the level of the infundibulopelvic ligament. Procedure Description: After informed consent was signed the patient was taken to the operating room. She was given spinal anesthesia, SCDs were placed on her legs. A leyva catheter was already in place. The heart rate was checked and was normal. She underwent abdominal and vaginal prep and was draped in the dorsal supine position with a leftward tilt. The patient was tested and spinal anesthesia was found to be adequate. A time out was performed. A skin incision was made with the scalpel and carried down to the underlying layer of fascia with blunt dissection. The fascia was incised on either side of the midline and the fascial incision extended laterally with a combination of sharp and blunt dissection. The inferior edge of the fascia was grasped with shari clamps and tented up and dissected down with a combination of sharp and blunt dissection. Then the superior edge of the fascial incision was grasped with shari clamps and tented up and dissected down with a combination of sharp and blunt dissection. The rectus muscles were in the midline and the peritoneum was entered bluntly. The peritoneal incision was extended laterally with blunt dissection. Multiple simple cysts were noted with long pedacles extending into the pt's right abdomen. The bladder blade was inserted. A transverse incision was made in the lower uterine segment with the scalpel. The incision was extended superiorly and inferiorly with blunt pressure. The infants head delivered with fundal pressure followed by the shoulders and the rest of the body. The cord was milked toward the baby and after 1min it was clamped x2 and cut. The baby was handed to the chief fundraising officer. Cord blood was collected. The placenta delivered with fundal massage and gentle cord traction and appeared to be intact. The uterus was exteriorized and cleared of clots and debris. The uterine incision was closed with 0-vicryl in a running locked fashion with a second layer of suture imbricating the first. Good hemostasis was noted. The cysts were traced back to an attachment to the right abdominal side wall just above the infundibulopelvic ligament. There was another intact cyst noted directly attached to the sidewall. The thin pedacles were ligated with the ligasure and the cysts were sent for pathology evaluation. The uterus was placed back into the abdominal cavity. Clots were cleared from the peritoneal cavity with lap sponges. The incision was inspected once again and good hemostasis was noted. There was good hemostasis of the rectus muscles. The fascia was closed with 0-vicryl in a running unlocked fashion. The subcuticular layer was irrigated and closed with interrupted sutures of 3-0 vicryl. The skin was closed with 4-0 monocryl in a running subcuticular fashion. The incision was cleaned. Mastisol and steristrips were placed. A dressing was placed. The fundus was palpated to be firm. The patient was moved to the stretcher and taken to the recovery room in stable condition.
--- NOTE | 2022-12-10 11:39 | W.ANESPOSTOP ---
Postoperative Evaluation Date, Time and Location Date Performed: 12/10/22 Time Performed: 11:39 Patient Location: Obstetrics Vital Signs Most Recent Imported Vital Signs: Most Recent Vital Signs Temp Pulse Resp BP Pulse Ox 36.6 C 112 H 18 98/58 L 97 12/10/22 08:00 12/10/22 09:30 12/10/22 09:00 12/10/22 09:30 12/10/22 09:30 Assessment Mental Status: Awake (Alert & Oriented to Patient Baseline) Airway and Respiratory Function: Patent airway with normal (patient baseline) respiratory exam Cardiovascular Function: Hemodynamically Stable Hydration Status: Adequately Hydrated Nausea & Vomiting: No Nausea or Vomiting Pain: Pain is tolerable per patient Peripheral Nerve Block: Patient did not receive a nerve block Postoperative Comments:: Spinal this wearing off. Nursing will continue to monitor this.
[2022-12-10] MEDS: Normal Saline Flush 10 ML SYR IVP ×2 (12:24→18:27)
[2022-12-10] MEDS: Ketorolac 30 MG/ML VIAL IVP ×2 (12:24→18:26)
[2022-12-10] MEDS: Sertraline 25 MG TAB PO (12:25)
[2022-12-11] VITALS (8 sets, daily range): BP systolic 103–128; BP diastolic 56–85; PULSE 81–101; RESP 17–18; TEMP 36.5–37; O2SAT 99
[2022-12-11] MEDS: Ketorolac 30 MG/ML VIAL IVP ×2 (00:15→06:03)
[2022-12-11] MEDS: Normal Saline Flush 10 ML SYR IVP ×2 (00:15→06:04)
[2022-12-11 06:58] LABS: Abs Immature Grans 0.12 10^3/uL (0.0-0.06); Absolute Eosinophil Count 0.04 10^3/uL (0.0-0.7); Absolute Lymphocyte Count 2.58 10^3/uL (1.2-3.4); Absolute Monocyte Count 1.21 10^3/uL (0.1-0.8); Basophils % 0.1; Eosinophils % 0.2; HCT 25.4 % (36.0-46.0); HGB 7.9 g/dL (11.2-15.7); Immature Grans % 0.6; Lymphocytes % 12.2; MCH 23.1 pg (27.0-33.0); MCHC 31.1 % (32.0-36.0); MCV 74 fL (80-95); MPV 10.5 fL (8.0-11.0); Monocytes % 5.7; Neutrophils % 81.2; Platelet Count 265 10^3/uL (130-400); RBC 3.42 10^6/uL (3.93-5.22); RDW 17.5 % (11.7-14.6); RDW-SD 46.6 fL; WBC 21.18 10^3/uL (4.4-10.8)
[2022-12-11 07:11] LABS: Absolute Basophil Count 0.02 10^3/uL (0.0-0.2)
--- NOTE | 2022-12-11 07:16 | OBPPV_ITS ---
Date of service: 12/11/22 Time of Service: 07:16 Assessment and Plan Assessment and plan (1) Status post primary low transverse section: Status: Acute Assessment and plan: Postoperative day #1 status post primary low-transverse section for labor arrest and nonreassuring heart tones. Overall doing reasonably well today. Patient does have a lot of education to participate in today for care of her . She did request circumcision. This will be performed today. Risk benefits and alternatives have been discussed. Routine postoperative and care. (2) Postoperative anemia: Status: Acute Subjective Subjective Interval history: Patient seen and examined this morning. Some pain and discomfort through the night last night. She is up in a chair. Urine output has been fair. Vital signs are stable. Morning hemoglobin 7.9 down from 10. [place] feeding status: Exclusively breast feeding Exam Physical Exam Vital signs: Temp Pulse Resp BP Pulse Ox 98.5 F 97 H 18 104/74 97 12/11/22 00:30 12/11/22 06:23 12/11/22 06:23 12/11/22 06:23 12/10/22 12:30 Vital Signs Reviewed: Yes Constitutional Constitutional: no acute distress HEENT Exam HEENT Exam: Normal Neck Exam Neck Exam: Normal Respiratory Exam Respiratory Exam: Normal Cardiovascular Exam Cardiovascular Exam: Normal Abdominal Exam Comments: Soft, tender with palpation. Extremities Exam Extremity Exam: Normal and Edema (Bilateral, 1+); negative Calf Tenderness Neurological Exam Neurological Exam: Normal Psychiatric Exam Psychiatric Exam: Normal Results Hemoglobin/Hematocrit: Hgb 7.9 g/dL (11.2-15.7) L D 12/11/22 06:01 Hct 25.4 % (36.0-46.0) L 12/11/22 06:01 Abnormal Lab Findings: Abnormal Labs 12/09/22 12/11/22 18:00 06:01 WBC 21.15 H 21.18 H RBC 3.42 L Hgb 10.0 L 7.9 L D Hct 31.2 L 25.4 L MCV 73 L 74 L MCH 23.4 L 23.1 L MCHC 31.1 L RDW 17.2 H 17.5 H Absolute Neutrophils 17.20 H Absolute Monocytes 1.21 H
[2022-12-11] MEDS: oxyCODONE 5 MG/5 ML CUP PO (07:32)
[2022-12-11] MEDS: Docusate Sodium 100 MG/10 ML CUP PO (09:25)
[2022-12-11] MEDS: Sertraline 25 MG TAB PO (09:26)
[2022-12-11] MEDS: Ibuprofen 100 MG/5 ML CUP 600 MG PO (11:52)
[2022-12-11] MEDS: oxyCODONE 5 MG TAB PO ×2 (11:53→16:20)
[2022-12-11] MEDS: Ondansetron O.D.T. 4 MG TABEF PO (18:01)
[2022-12-11] MEDS: Metoclopramide 10 MG TAB 5 MG PO (23:05)
[2022-12-12 01:55] VITALS: BP 118/75; PULSE 105; TEMP 36.9
--- NOTE | 2022-12-12 03:42 | NUR.NOTE ---
Addendum entered by Ree Gallego RN 12/12/22 03:43: 0230 transfer of care to Rosa Lee RN, Original Note: Nursing Note: Report given to Rosa Lee for pt and nb.
[2022-12-12 04:28] VITALS: BP 110/75; PULSE 76
[2022-12-12 06:46] LABS: HCT 30.3 % (36.0-46.0); HGB 9.5 g/dL (11.2-15.7); MCH 23.3 pg (27.0-33.0); MCHC 31.4 % (32.0-36.0); MCV 74 fL (80-95); Platelet Count 350 10^3/uL (130-400); RBC 4.07 10^6/uL (3.93-5.22); RDW 17.5 % (11.7-14.6); RDW-SD 46.9 fL; WBC 22.59 10^3/uL (4.4-10.8)
[2022-12-12] MEDS: oxyCODONE 5 MG TAB PO ×2 (07:29→11:05)
[2022-12-12] MEDS: Ondansetron O.D.T. 4 MG TABEF PO (07:39)
[2022-12-12 08:29] VITALS: BP 109/76; PULSE 108; RESP 17; TEMP 37
[2022-12-12] MEDS: Ibuprofen 100 MG/5 ML CUP 600 MG PO ×2 (09:05→17:07)
[2022-12-12] MEDS: Sertraline 25 MG TAB PO (09:06)
[2022-12-12] MEDS: Metoclopramide 10 MG TAB 5 MG PO ×2 (12:57→21:23)
[2022-12-12 12:58] VITALS: BP 110/72; PULSE 87; RESP 17
--- NOTE | 2022-12-12 13:01 | W.PM.OBPNV1 ---
Date of service: 12/12/22 Time of Service: 13:02 Assessment and Plan Assessment and plan (1) Status post primary low transverse section: Status: Acute Assessment and plan: Routine post-op care. Likely D/C in the am. Subjective Subjective Interval history: Pt with minimal nausea. Did not take any pain meds overnight. Does not like the amount of fluid she has to drink for the liquid ibuprofen. Has been tolerating some PO. +flatus and BM today. Exam Physical Exam Vital signs: Temp Pulse Resp BP Pulse Ox 98.6 F 87 17 110/72 99 12/12/22 08:29 12/12/22 12:58 12/12/22 12:58 12/12/22 12:58 12/11/22 19:40 Vital Signs Reviewed: Yes Constitutional Constitutional: no acute distress and cooperative Detailed HEENT Exam Head: Present normocephalic and atraumatic Respiratory Exam Respiratory Exam: Normal Abdominal Exam Abdomen: Tender (mildly) Comments: Incision clean, dry, intact Fundal Exam Fundus: Below Umbilicus and Firm Comment: Abdomen slightly distended. Extremities Exam Extremity Exam: Edema (trace) Detailed Neurological Exam Neurological: Present alert, oriented X3 and CN II-XII intact Results Hemoglobin/Hematocrit: Hgb 9.5 g/dL (11.2-15.7) L 12/12/22 06:25 Hct 30.3 % (36.0-46.0) L 12/12/22 06:25 Abnormal Lab Findings: Abnormal Labs 12/09/22 12/11/22 12/12/22 18:00 06:01 06:25 WBC 21.15 H 21.18 H 22.59 H RBC 3.42 L Hgb 10.0 L 7.9 L D 9.5 L Hct 31.2 L 25.4 L 30.3 L MCV 73 L 74 L 74 L MCH 23.4 L 23.1 L 23.3 L MCHC 31.1 L 31.4 L RDW 17.2 H 17.5 H 17.5 H Absolute Neutrophils 17.20 H Absolute Monocytes 1.21 H
[2022-12-12] MEDS: Acetaminophen Solution 650 MG/20.3 ML CUP PO ×2 (13:28→21:21)
[2022-12-12 17:07] VITALS: BP 115/70; PULSE 85
[2022-12-12 19:00] VITALS: BP 114/77; PULSE 89; RESP 18; TEMP 36.4
[2022-12-12] MEDS: Ibuprofen 200 MG TAB 600 MG PO (21:25)
[2022-12-13] MEDS: Metoclopramide 10 MG TAB 5 MG PO (03:21)
[2022-12-13] MEDS: Acetaminophen Solution 650 MG/20.3 ML CUP PO ×2 (03:21→06:44)
[2022-12-13 03:29] VITALS: BP 112/71; PULSE 78; TEMP 36.8
[2022-12-13] MEDS: Ibuprofen 200 MG TAB 600 MG PO (06:45)
[2022-12-13 08:05] VITALS: BP 110/70; PULSE 84; RESP 18; TEMP 36.6; O2SAT 97
--- NOTE | 2022-12-13 10:10 | OBPPV_ITS ---
Date of service: 12/13/22 Time of Service: 09:30 Assessment and Plan Assessment and plan (1) Status post primary low transverse section: Status: Acute Assessment and plan: D/C home today. Reviewed reasons to call or be evaluated. Will need f/u visit at [facility] 2wks after delivery. Subjective Subjective Interval history: Pt feels well. Denies having nausea. Tolerating PO. +BMs. Minimal lochia. Keiser feeding status: Breast and formula feeding Narrative: Pt says she is putting the baby to the breast but the nurse says she has been exclusively formula feeding now. Exam Physical Exam Vital signs: Temp Pulse Resp BP Pulse Ox 98.3 F 78 18 112/71 99 12/13/22 03:29 12/13/22 03:29 12/12/22 19:00 12/13/22 03:29 12/11/22 19:40 Vital Signs Reviewed: Yes Constitutional Constitutional: no acute distress and cooperative Detailed HEENT Exam Head: Present normocephalic and atraumatic Respiratory Exam Respiratory Exam: Normal Abdominal Exam Abdomen: Tender (mildly) Comments: Incision clean, dry, intact Fundal Exam Fundus: Below Umbilicus and Firm Extremities Exam Extremity Exam: Edema (trace) Detailed Neurological Exam Neurological: Present alert, oriented X3 and CN II-XII intact Results Hemoglobin/Hematocrit: Hgb 9.5 g/dL (11.2-15.7) L 12/12/22 06:25 Hct 30.3 % (36.0-46.0) L 12/12/22 06:25 Abnormal Lab Findings: Abnormal Labs 12/09/22 12/11/22 12/12/22 18:00 06:01 06:25 WBC 21.15 H 21.18 H 22.59 H RBC 3.42 L Hgb 10.0 L 7.9 L D 9.5 L Hct 31.2 L 25.4 L 30.3 L MCV 73 L 74 L 74 L MCH 23.4 L 23.1 L 23.3 L MCHC 31.1 L 31.4 L RDW 17.2 H 17.5 H 17.5 H Absolute Neutrophils 17.20 H Absolute Monocytes 1.21 H
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
== END 2022-12-13 14:00 | disposition home or self-care (01) | DRG 788 ==
LOC: OBS 12-10 19:30 → BCD 12-18 15:25
PROVIDERS: Obstetrics & Gynecology; Admitting Provider Obstetrics & Gynecology; PCP Nurse Practitioner Adult Health; Visit Provider Obstetrics & Gynecology
PROC: 10D00Z1 Extraction of Products of Conception, Low, Open Approach (ICD-10-PCS; CPT 59514; principal; 2022-12-10 06:50)
DX: O76 Abnormality in fetal heart rate and rhythm complicating labor and delivery (principal); O62.2 Other uterine inertia; Z37.0 Single live birth; Z3A.40 40 weeks gestation of pregnancy; O77.0 Labor and delivery complicated by meconium in amniotic fluid; D19.1 Benign neoplasm of mesothelial tissue of peritoneum
CPT/HCPCS: 59514; 36415; 85027; 86850; 86900; 86901; 87635; 88305; 96360; 59025; 85025; G0378; J0456; J0690; J1885; J2370; J2405; J3010

== ENCOUNTER 2025-02-15 15:51 | Emergency (ER) | payer MEDICAID, SELFPAY ==
[2025-02-15] VITALS (31 sets, daily range): BP systolic 95–123; BP diastolic 28–81; PULSE 71–131; RESP 14–29; TEMP 36.2–37.5; O2SAT 98–100
--- NOTE | 2025-02-15 16:00 | DI.CT_ITS ---
Exam(s) CT NECK W EXAM: CT NECK W INDICATION: left facial neck swelling. COMPARISON: CT CT NECK W from 01/17/2021 TECHNIQUE: FINDINGS: VISUALIZED PARANASAL SINUSES: Unremarkable. NASOPHARYNX: Unremarkable ORODENTAL/ OROPHARYNX: There is a peripherally enhancing abscess medial to the angle of the left side of the mandible, measuring approximately 2 cm AP by 2.7 cm craniocaudal by 1.5 cm wide. This is ass ociated with large gas-forming infection abscess involving the deep and superficial ipsilateral masti cator space and the left parapharyngeal space and left infra temporal fossa. Cephalad extension invo lves the temporalis muscle. The deep lobe of the left parotid gland may be involved. The submandibu lar glands does not appear involved. The left pharyngeal tonsil is medially deviated. Gas from the infection is seen contiguous with the lateral aspect of the left tonsil. There is no gas nor abnormal swelling in the retropharyngeal spac e. HYPOPHARYNX: Unremarkable. Valleculae and epiglottis and aryepiglottic folds appear normal. VOCAL CORDS: Unremarkable. No masses evident. Subglottic airway appears unremarkable. THYROID GLAND: Unremarkable. Normal size and no obvious nodules. SALIVARY GLANDS: See above LYMPH NODES: There is some mild left-sided adenopathy in the neck and sub platysmal. OTHER: VISUALIZED LUNG APICES: No significant findings. ORBITS: Unremarkable. Not involved. IMPRESSION: 1. There is a 2.0 x 2.7 x 1.5 cm abscess in the left side of the mouth medial to the angle of the le ft side of the mandible and there is an associated extensive large gas containing infection involving the left deep and superficial battery service technician space and left parapharyngeal space and left infratemporal fossa. 2. This is an ENT emergency Preliminary report from virtual Radiology was reviewed Also called by myself to ER physician 02/15/2025 at 9:30 p.m.. This patient had already been transferred to [facility] RADIATION DOSE DELIVERED: 579.05mGy.cm Total DLP DATA REPOSITORY: All CT scans at this facility are submitted to the National Radiology Data Registry (NRDR) Dose Index Registry (DIR) with the [employer] (A[employer]). RADIATION OPTIMIZATION: All CT scans at this facility use at least one of these dose optimization te chniques: automated exposure control; mA and/or kV adjustment per patient size (includes targeted exa ms where dose is matched to clinical indication); or iterative reconstruction.
--- NOTE | 2025-02-15 16:00 | DI.CT_ITS ---
Exam(s) CT FACIAL W EXAM: CT FACIAL W CLINICAL HISTORY: left facial swelling. TECHNIQUE: Imaging Protocol: Axial computed tomography images with coronal and sagittal reformatted images were created and reviewed. On the pay 350-60 mL COMPARISON: CT CT NECK W from 02/15/2025 FINDINGS: MAXILLOFACIAL CT SCAN: See separate CT scan dictation for soft tissues neck with IV contrast CT scan performed today. There is multifocal dental disease. There is a a peripherally enhancing abscess in the left side of the oral cavity just medial to the angle of the left side of the mandible and this is probably the ep icenter for the severe large gas-forming infection which involves the adjacent deep and superficial l eft delivery architect spaces and extending into the left parapharyngeal space and left infratemporal fossa. There does not appear to be gas in the retropharyngeal face nor below this level. A metallic tongue piercing is noted. There is some mild mucosal thickening in the floor and medial wall of left maxillary sinus not associ ated with fluid level. Right maxillary sinus is clear as are the other paranasal sinuses and there i s also no fluid in the middle ear cavities nor within the mastoid air cells. No evidence of orbital involvement. There is no gas within the visualized intracranial Compartment IMPRESSION: ENT emergency. There is a large gas-forming infectious process involving the superficial and deep le ft delivery architect space and the parapharyngeal face and left infratemporal fossa. The origin appears to be an abscess in the left side of the oral cavity on the lingular all side of posterior molar. Preliminary virtual Radiology report was reviewed. I also called the ED physician 02/15/2025 at 9:30 p.m.. This patient had already been transferred to [facility]. RADIATION DOSE DELIVERED: 579.05mGy.cm Total DLP DATA REPOSITORY: All CT scans at this facility are submitted to the National Radiology Data Registry (NRDR) Dose Index Registry (DIR) with the [employer] (ACR). RADIATION OPTIMIZATION: All CT scans at this facility use at least one of these dose optimization te chniques: automated exposure control; mA and/or kV adjustment per patient size (includes targeted exa ms where dose is matched to clinical indication); or iterative reconstruction.
[2025-02-15] MEDS: AMPICILLIN/SULBACTAM 3 GM in Normal Saline 100 ML IVPB (16:31)
[2025-02-15] MEDS: Normal Saline 1,000 ML 1000 ML IV ×2 (16:32→17:19)
[2025-02-15 16:33] LABS: Abs Immature Grans 0.19 10^3/uL (0.0-0.06); Basophils % 0.2 %; Eosinophils % 0.1 %; HCT 22.7 % (36.0-46.0); Immature Grans % 0.7 %; Lymphocytes % 3.3 %; MCH 16.5 pg (27.0-33.0); MCHC 27.8 % (32.0-36.0); MCV 60 fL (80-95); Monocytes % 5.7 %; RBC 3.81 10^6/uL (3.93-5.22); RDW 17.8 % (11.7-14.6); RDW-SD 37.7 fL
[2025-02-15] MEDS: ACETAMINOPHEN 1,000 MG/100 ML BTL 400 MG IVPB (16:38)
[2025-02-15] MEDS: Normal Saline - Diluent 50 ML VIAL IJ (16:41)
[2025-02-15] MEDS: Omnipaque 350 MG/ML 100 ML BTL IJ (16:42)
[2025-02-15 16:47] LABS: ALT 10 U/L (14-59); AST 18 U/L (15-37); Albumin 3.1 g/dL (3.4-5.0); Alkaline Phosphatase 114 U/L (46-116); BUN 18 mg/dL (7-18); Bilirubin, Total 1.2 mg/dL (0.2-1.0); Calcium 8.8 mg/dL (8.5-10.1); Chloride 102 mmol/L (98-107); Estimated GFR 80.68 (mL/min/1.73m2); Glucose 113 mg/dL (74-106); Potassium 3.1 mmol/L (3.5-5.1); Sodium 139 mmol/L (136-145); Total Protein 8.4 g/dL (6.4-8.2)
[2025-02-15 16:53] LABS: Absolute Basophil Count 0.06 10^3/uL (0.0-0.2); Absolute Eosinophil Count 0.03 10^3/uL (0.0-0.7); Absolute Monocyte Count 1.62 10^3/uL (0.1-0.8); Absolute Neutrophil Count 25.52 10^3/uL (1.2-6.7)
[2025-02-15 16:55] LABS: HGB 6.3 g/dL (11.2-15.7); WBC 28.36 10^3/uL (4.4-10.8)
[2025-02-15 16:56] LABS: Absolute Lymphocyte Count 0.94 10^3/uL (1.2-3.4); Anisocytosis 1+; Diff Comment Diff Reviewed; Hypochromasia 2+; Microcytosis 2+; Platelet Count 318 10^3/uL (130-400)
[2025-02-15 17:06] LABS: HCG Qual (Serum) Negative
[2025-02-15 17:07] LABS: Procalcitonin 13.16 ng/mL
--- NOTE | 2025-02-15 17:26 | DI.VRAD_ITS ---
Addendum created by Dahlia Hernandez MD on 02/15/2025 5:30:42 PM EDT: Please disregard the original report. The corrected report is as follows: Large gas-forming infection/abscess in the superficial and deep left power sweeper operator space as well as the left parapharyngeal space and left infratemporal fossa. No retropharyngeal abscess/infection seen. Initial report created on 02/15/2025 5:26:30 PM EDT: PROCEDURE INFORMATION: Exam: CT Neck With Contrast Exam date and time: 02/15/2025 4:33 PM Age: 24 years old Clinical indication: Mass, lump, or swelling in neck and other: Left facial neck swelling TECHNIQUE: Imaging protocol: Computed tomography of the neck with contrast. Contrast material: 350; Contrast volume: 100 ml; Contrast route: INTRAVENOUS (IV); COMPARISON: CT NECK W 01/17/2021 7:19 PM FINDINGS: Salivary glands: Large gas-forming infection/abscess in the superficial and deep lobes of the left parotid space involving the superficial and deep lobes, as well as the left fat and infratemporal fossa. The submandibular glands and right parotid gland are normal in size. Pharynx: Unremarkable. No significant tonsillar enlargement. Larynx: Unremarkable. Epiglottis is normal. Thyroid: Normal. No enlarged or calcified nodules. Trachea: Visualized trachea is unremarkable. Lungs: Unremarkable as visualized. Lymph nodes: Enlarged left cervical lymph nodes. Bones/joints: Unremarkable. No acute fracture. Soft tissues: As above. IMPRESSION: Large gas-forming infection/abscess in the superficial and deep lobes of the left parotid space involving the superficial and deep lobes, as well as the left fat and infratemporal fossa. There is multifocal dental disease. Recommend complete dental evaluation. Dictated and Authenticated by: Dahlia Hernandez MD. Orderin Johana Noriega MD
--- NOTE | 2025-02-15 17:30 | DI.VRAD_ITS ---
PROCEDURE INFORMATION: Exam: CT Maxillofacial With Contrast Exam date and time: 02/15/2025 4:33 PM Age: 24 years old Clinical indication: Mass, lump, or swelling and other: Left facial neck swelling; Mouth TECHNIQUE: Imaging protocol: Computed tomography of the face with contrast. Contrast material: 350; Contrast volume: 60 ml; Contrast route: INTRAVENOUS (IV); COMPARISON: CT HEAD FACIAL WO 01/17/2021 7:09 PM FINDINGS: Paranasal sinuses: No air-fluid levels. The paranasal sinuses and mastoid air cells are clear. Orbital cavities: Orbits are normal. Globes are unremarkable. Teeth: There is multifocal dental disease. Recommend complete dental evaluation. There is multifocal dental disease. Recommend complete dental evaluation. There is multifocal dental disease. Recommend complete dental evaluation. Salivary glands: Large gas-forming infection/abscess in the superficial and deep left library science instructor space as well as the left parapharyngeal space and left infratemporal fossa. No retropharyngeal abscess. Bones: No evidence of osteomyelitis. Soft tissues: As above. IMPRESSION: Large gas-forming infection/abscess in the superficial and deep left library science instructor space as well as the left parapharyngeal space and left infratemporal fossa. No retropharyngeal abscess. Dictated and Authenticated by: Dahlia Hernandez MD. Orderin Johana Noriega MD
[2025-02-15] MEDS: CLINDAMYCIN 900 MG/50 ML BAG 50 MG IVPB (18:14)
[2025-02-15] MEDS: VANCOMYCIN 1,500 MG in Normal Saline 250 ML 166.6666 MG IVPB (18:15)
[2025-02-15 18:25] LABS: ESR 84 mm/hr (0-20)
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
[2025-02-15 18:45] LABS: C-Reactive Protein > 25.00 mg/dL (<or=0.5)
[2025-02-15] MEDS: MEROPENEM 1 GM in Normal Saline 100 ML IVPB (18:55)
[2025-02-15] MEDS: Ondansetron 4 MG/2 ML VIAL (19:06)
== END 2025-02-15 19:18 | disposition short-term general hospital (02) ==
PROVIDERS: Emergency Provider Emergency Medicine; PCP Nurse Practitioner Adult Health
DX: M27.2 Inflammatory conditions of jaws (principal); D64.9 Anemia, unspecified; K04.7 Periapical abscess without sinus; E87.6 Hypokalemia; M72.6 Necrotizing fasciitis
CPT/HCPCS: 36415; 36430; 70491; 80053; 84145; 85652; 86850; 86900; 86901; 86920; 87040; 96374; 96375; 99285; 70487; 84703; 85025; 86140; J0131; J0295; J0737; J2185; J2405; J3370; J3490; P9016

== ENCOUNTER 2025-03-09 17:12 | Emergency (ER) | payer MEDICAID, SELFPAY ==
[2025-03-09 17:24] VITALS: BP 103/75; PULSE 82; RESP 12; TEMP 36.6; O2SAT 99
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
--- NOTE | 2025-03-09 18:36 | NUR.NOTE ---
Nursing Note: this RN reinforced wound vac and changed PT trach dressing with wound care per MD JAYLEEN. Wound vac is sealed and suctioning properly at this time.
== END 2025-03-09 18:40 | disposition home or self-care (01) ==
PROVIDERS: Emergency Provider Emergency Medicine; PCP Nurse Practitioner Adult Health
DX: T82.594A Other mechanical complication of infusion catheter, initial encounter
CPT/HCPCS: 99283 ×2; 96523

== ENCOUNTER 2025-03-09 17:57 | Outpatient (REF) | payer MEDICAID, SELFPAY ==
[2025-03-09 13:34] LABS: Abs Immature Grans 0.01 10^3/uL (0.0-0.06); Absolute Basophil Count 0.05 10^3/uL (0.0-0.2); Absolute Eosinophil Count 0.25 10^3/uL (0.0-0.7); Absolute Lymphocyte Count 2.02 10^3/uL (1.2-3.4); Absolute Monocyte Count 0.48 10^3/uL (0.1-0.8); Absolute Neutrophil Count 2.67 10^3/uL (1.2-6.7); Basophils % 0.9 %; Eosinophils % 4.6 %; HCT 36.7 % (36.0-46.0); HGB 11.3 g/dL (11.2-15.7); Immature Grans % 0.2 %; Lymphocytes % 36.9 %; MCH 23.4 pg (27.0-33.0); MCHC 30.8 % (32.0-36.0); MCV 76 fL (80-95); MPV 10.6 fL (8.0-11.0); Monocytes % 8.8 %; Neutrophils % 48.6 %; Platelet Count 465 10^3/uL (130-400); RBC 4.83 10^6/uL (3.93-5.22); WBC 5.48 10^3/uL (4.4-10.8)
[2025-03-09 13:46] LABS: Anisocytosis 2+; Diff Comment RBC Morph Reviewed
[2025-03-09 13:47] LABS: ALT 24 U/L (14-59); AST 17 U/L (15-37); Albumin 3.6 g/dL (3.4-5.0); Alkaline Phosphatase 105 U/L (46-116); Anion Gap 11.6 mmol/L (3-11); BUN 13 mg/dL (7-18); Bilirubin, Total 0.4 mg/dL (0.2-1.0); CO2 25.4 mmol/L (21.0-32.0); CREATININE 0.6 mg/dL (0.55-1.02); Calcium 9.2 mg/dL (8.5-10.1); Chloride 103 mmol/L (98-107); Estimated GFR 128.46 (mL/min/1.73m2); Glucose 94 mg/dL (74-106); Potassium 4.1 mmol/L (3.5-5.1); Sodium 140 mmol/L (136-145); Total Protein 8.3 g/dL (6.4-8.2)
[2025-03-09 13:51] LABS: C-Reactive Protein < 0.50 mg/dL (<or=0.5)
== END 2025-03-09 17:58 | disposition home or self-care (01) ==
LOC: LBN 17:57
PROVIDERS: PCP Nurse Practitioner Adult Health; Visit Provider Internal Medicine Infectious Disease
DX: B37.0 Candidal stomatitis (principal); M72.6 Necrotizing fasciitis
CPT/HCPCS: 80053; 85025; 86140

== ENCOUNTER 2025-03-16 13:21 | Outpatient (REF) | payer MEDICAID, SELFPAY ==
[2025-03-16 14:22] LABS: ALT 25 U/L (14-59); AST 21 U/L (15-37); Abs Immature Grans 0.01 10^3/uL (0.0-0.06); Albumin 3.1 g/dL (3.4-5.0); Alkaline Phosphatase 90 U/L (46-116); Anion Gap 9.1 mmol/L (3-11); BUN 7 mg/dL (7-18); Bilirubin, Total 0.5 mg/dL (0.2-1.0); CO2 27.9 mmol/L (21.0-32.0); Calcium 8.9 mg/dL (8.5-10.1); Chloride 105 mmol/L (98-107); Estimated GFR 128.46 (mL/min/1.73m2); Glucose 86 mg/dL (74-106); HCT 35.8 % (36.0-46.0); HGB 11.2 g/dL (11.2-15.7); Immature Grans % 0.2 %; MCH 24.4 pg (27.0-33.0); MCHC 31.3 % (32.0-36.0); MCV 78 fL (80-95); Platelet Count 214 10^3/uL (130-400); Potassium 3.7 mmol/L (3.5-5.1); RBC 4.59 10^6/uL (3.93-5.22); Sodium 142 mmol/L (136-145); Total Protein 7.5 g/dL (6.4-8.2); WBC 4.45 10^3/uL (4.4-10.8)
[2025-03-16 14:40] LABS: C-Reactive Protein < 0.50 mg/dL (<or=0.5)
[2025-03-16 14:45] LABS: Anisocytosis 2+
[2025-03-16 14:46] LABS: Microcytosis 1+
== END 2025-03-16 13:22 | disposition home or self-care (01) ==
LOC: LBN 13:21
PROVIDERS: PCP Nurse Practitioner Adult Health; Visit Provider Internal Medicine Infectious Disease
DX: B37.0 Candidal stomatitis (principal); M72.6 Necrotizing fasciitis; L03.211 Cellulitis of face
CPT/HCPCS: 80053; 85025; 86140

== ENCOUNTER 2025-03-23 15:54 | Outpatient (REF) | payer MEDICAID, SELFPAY ==
[2025-03-23 13:53] LABS: Abs Immature Grans 0.01 10^3/uL (0.0-0.06); HCT 35.5 % (36.0-46.0); HGB 11.0 g/dL (11.2-15.7); Immature Grans % 0.2 %; MCH 24.4 pg (27.0-33.0); MCHC 31.0 % (32.0-36.0); MCV 79 fL (80-95); Platelet Count 215 10^3/uL (130-400); RBC 4.51 10^6/uL (3.93-5.22); RDW 24.1 % (11.7-14.6); RDW-SD 65.1 fL; WBC 4.63 10^3/uL (4.4-10.8)
[2025-03-23 14:06] LABS: ALT 21 U/L (14-59); AST 16 U/L (15-37); Albumin 3.1 g/dL (3.4-5.0); Alkaline Phosphatase 80 U/L (46-116); Anion Gap 11.0 mmol/L (3-11); BUN 5 mg/dL (7-18); Bilirubin, Total 0.3 mg/dL (0.2-1.0); CO2 26.0 mmol/L (21.0-32.0); Calcium 8.5 mg/dL (8.5-10.1); Chloride 106 mmol/L (98-107); Estimated GFR 128.46 (mL/min/1.73m2); Glucose 85 mg/dL (74-106); Potassium 3.4 mmol/L (3.5-5.1); Sodium 143 mmol/L (136-145); Total Protein 7.3 g/dL (6.4-8.2)
[2025-03-23 14:08] LABS: C-Reactive Protein < 0.50 mg/dL (<or=0.5)
[2025-03-23 14:10] LABS: Anisocytosis 2+
== END 2025-03-23 15:55 | disposition home or self-care (01) ==
LOC: LBN 15:54
PROVIDERS: PCP Nurse Practitioner Adult Health; Visit Provider Internal Medicine Infectious Disease
DX: Z79.2 Long term (current) use of antibiotics (principal); B37.0 Candidal stomatitis; M72.6 Necrotizing fasciitis
CPT/HCPCS: 80053; 85025; 86140

== ENCOUNTER 2025-03-30 15:02 | Outpatient (REF) | payer MEDICAID, SELFPAY ==
[2025-03-30 13:59] LABS: Abs Immature Grans 0.01 10^3/uL (0.0-0.06); HCT 34.6 % (36.0-46.0); HGB 10.8 g/dL (11.2-15.7); Immature Grans % 0.2 %; MCH 24.9 pg (27.0-33.0); MCHC 31.2 % (32.0-36.0); MCV 80 fL (80-95); MPV 10.8 fL (8.0-11.0); RBC 4.34 10^6/uL (3.93-5.22); RDW 22.1 % (11.7-14.6); RDW-SD 62.1 fL; WBC 4.30 10^3/uL (4.4-10.8)
[2025-03-30 14:23] LABS: ALT 20 U/L (14-59); AST 15 U/L (15-37); Albumin 3.2 g/dL (3.4-5.0); Alkaline Phosphatase 78 U/L (46-116); Anion Gap 11.9 mmol/L (3-11); BUN 5 mg/dL (7-18); Bilirubin, Total 0.3 mg/dL (0.2-1.0); CO2 26.1 mmol/L (21.0-32.0); Calcium 8.4 mg/dL (8.5-10.1); Chloride 106 mmol/L (98-107); Estimated GFR 123.78 (mL/min/1.73m2); Glucose 89 mg/dL (74-106); Potassium 3.6 mmol/L (3.5-5.1); Sodium 144 mmol/L (136-145); Total Protein 7.3 g/dL (6.4-8.2)
[2025-03-30 14:25] LABS: C-Reactive Protein < 0.50 mg/dL (<or=0.5)
[2025-03-30 14:57] LABS: Platelet Count 263 10^3/uL (130-400)
[2025-03-30 14:58] LABS: Anisocytosis 1+
== END 2025-03-30 15:03 | disposition home or self-care (01) ==
LOC: LBN 15:02
PROVIDERS: PCP Nurse Practitioner Adult Health; Visit Provider Internal Medicine Infectious Disease
DX: B37.0 Candidal stomatitis (principal); M72.6 Necrotizing fasciitis; L03.211 Cellulitis of face
CPT/HCPCS: 80053; 85025; 86140

== ENCOUNTER 2025-04-06 16:47 | Outpatient (REF) | payer MEDICAID, SELFPAY ==
[2025-04-06 13:44] LABS: Abs Immature Grans 0.01 10^3/uL (0.0-0.06); HCT 36.1 % (36.0-46.0); HGB 11.3 g/dL (11.2-15.7); Immature Grans % 0.2 %; MCH 25.1 pg (27.0-33.0); MCHC 31.3 % (32.0-36.0); MCV 80 fL (80-95); Platelet Count 296 10^3/uL (130-400); RBC 4.50 10^6/uL (3.93-5.22); RDW 19.8 % (11.7-14.6); RDW-SD 58.6 fL; WBC 4.69 10^3/uL (4.4-10.8)
[2025-04-06 13:50] LABS: ALT 15 U/L (14-59); AST 13 U/L (15-37); Albumin 3.4 g/dL (3.4-5.0); Alkaline Phosphatase 71 U/L (46-116); Anion Gap 9.4 mmol/L (3-11); BUN 8 mg/dL (7-18); Bilirubin, Total 0.5 mg/dL (0.2-1.0); CO2 27.6 mmol/L (21.0-32.0); Calcium 8.8 mg/dL (8.5-10.1); Chloride 105 mmol/L (98-107); Estimated GFR 123.78 (mL/min/1.73m2); Glucose 79 mg/dL (74-106); Potassium 4.1 mmol/L (3.5-5.1); Sodium 142 mmol/L (136-145); Total Protein 7.4 g/dL (6.4-8.2)
[2025-04-06 13:51] LABS: C-Reactive Protein < 0.50 mg/dL (<or=0.5)
[2025-04-06 14:10] LABS: RBC Morphology Normal
== END 2025-04-06 16:48 | disposition home or self-care (01) ==
LOC: LBN 16:47
PROVIDERS: PCP Nurse Practitioner Adult Health; Visit Provider Internal Medicine Infectious Disease
DX: B37.0 Candidal stomatitis (principal); M72.6 Necrotizing fasciitis
CPT/HCPCS: 80053; 85025; 86140